=== PATIENT | female | born 1985 | race American Indian/Alaskan Native ===

== ENCOUNTER 2017-02-22 05:46 | Emergency (ER) | payer MEDICAID, SELFPAY ==
--- NOTE | 2017-02-22 09:01 | OBHP ---
Datetime: 02/22/2017 07:47 IP Adm Impression: Term, intrauterine IP Admit Plan: Discharge home Admit Comment, IP Provider: 31 yo at 38.6 weeks GA based on LMP 05/26/16 consisent with US, EDC 1 05/03/16 presents w/ complaints of decreased movement since 4 pm yesterday and vaginal discharge . Denies seeing any clear watery discharge. Upon coming to ED, pt felt movement. Denies VB or C TX. Denies headache, dizziness, nausea, vomiting, fever, chills, cough, night sweats or chest pain. P t is GBS negative. PNC: [facility], next appointment on 03/02/17. PNL:GBS neg, A+, Ab neg, HIV neg, RPR neg, rubella immune, HBsag neg, +quantiferon, GC/C neg. Pobhx: G1 Past gynhx: denies abnormal pap, Denies hx STI. pmhx: asthma, +quantiferon( no CXR available) social hx: denies EtOH, smoking cigarttes or recreational drug use. Family hx: denies family hx CAD, DMII, or CA. medication: PNV, ventolin HFA prn. Allergies: NKDA Assessment: 31 yo IUP at 38.6 weeks GA, not in active labor. Plan: heart tracing is reassuring SPE pooling is negative SVE: 0/-4 Discharge home with labor precaution and kick counts. All the questions and concerns were addressed. Pt was seen and examined with on-call OB hospitalist, Dr. Tran. Sultan Archuleta, PGY1 OB attending addendum: Patient seen and examined by me with . Agree with above assessment and plan. Patient denies va ginal bleeding contractions. Plan labor precautions next follow-up with clinic as scheduled. Extremities - PN: Normal Abdomen - PN: Normal Lungs - PN: Normal Heart - PN: Normal Neurologic - PN: Normal HEENT - PN: Normal General - PN: Normal FHR - Baseline A Provider: 140 Membranes, Provider: Intact Contraction Comments Provider: Q3min not appreciated by pt Comments, ACOG Physical Exam: SPE: whitish mucus discharge seen SVE: 1/0/-4 Bedside US: vertex position. Pool Provider: Negative IP Hx Assessment: The History has been Reviewed and is Current EGA AdmitDate IP: 38.6 Vital Signs Provider: Reviewed; Within Normal Limits IP Chief Complaint: Decreased movement; Maternal discomfort NICHD Variability Prov Fetus A: Moderate 6-25bpm NICHD Accel Fetus A IP Provider: 15X15 FHR Category Provider Fetus A: Category I NICHD Decel Fetus A IP Provider: None Dilatation, Provider: 1 Effacement, Provider: 0 Station, Provider: -4
[2017-02-22 11:37] VITALS: BP 137/82; PULSE 88; RESP 17; TEMP 98.5
== END 2017-02-22 07:15 | disposition home or self-care (01) ==
LOC: H.EROB2 05:46
DX: O36.8131 Decreased fetal movements, third trimester, fetus 1 (principal); Z3A.38 38 weeks gestation of pregnancy

== ENCOUNTER 2017-03-09 19:13 | Emergency (ER) | payer MEDICAID, SELFPAY ==
--- NOTE | 2017-03-10 00:06 | OBHP ---
Datetime: 03/09/2017 20:40 IP Adm Impression: Term, intrauterine ; No Active Labor; Intact Membranes IP Admit Plan: Discharge home Admit Comment, IP Provider: 31 y/o F at 41 weeks GA, OWEN 03/03/17 by 1st trim US, c/o pelvic pa in and uterine contractions that began a few hours ago and increasing in intensity. No VB or LOF. FM present. Pt is scheduled for IOL at [facility] tomorrow. Pt denies fever, headache, d izziness, visual disturbances, CP, SOB, N/V, urinary complaints or rash. NKDA PNC CLinic; [facility]. Meds: PNV PMHx: denied PSHx: denied SHx: No tobacco, alcohol or rec drugs. A/P: 31 y/o F with IUP at 41 weeks GA, stable and NOT in active labor. -Pt will be discharged. -Labor precautions discussed with pt. -Pt instructed to go to [facility] tomorrow for scheduled IOL as planned. Case discussed with Dr Finch, OB environmental associate. Brandon PGY-1. OB Hospitalist on-call - With PGY1, I saw and examined this patinet. Agree with note. MAHNDO Back - PN: Normal Lungs - PN: Normal Heart - PN: Normal Thyroid - PN: Normal Neurologic - PN: Normal HEENT - PN: Normal General - PN: Normal Presentation-Admit: Vertex FHR - Baseline A Provider: 145 Membranes, Provider: Intact Comments, ACOG Physical Exam: Bedside US: cephalic presentastion. Gestation - Est Wks by US: 41.0 Pool Provider: Negative IP Hx Assessment: The History has been Reviewed and is Current EGA AdmitDate IP: 41.0 IP Chief Complaint: Uterine contractions; Maternal discomfort NICHD Variability Prov Fetus A: Moderate 6-25bpm NICHD Accel Fetus A IP Provider: 15X15 FHR Category Provider Fetus A: Category I NICHD Decel Fetus A IP Provider: None Dilatation, Provider: 0 Effacement, Provider: 0 Station, Provider: -3
--- NOTE | 2017-03-10 00:08 | OBDCSUM ---
Datetime: 03/09/2017 20:29 Discharged to, Provider: Home Follow up at, Provider: CINDY Disch Instr Activity: Normal activity Disch Instr Diet: Regular Discharge Time: 03/09/2017 20:50 Follow up in weeks, Provider: vahid Disch Referrals: None
[2017-03-10 04:25] VITALS: BP 119/81; PULSE 81
== END 2017-03-09 20:50 | disposition home or self-care (01) ==
LOC: H.EROB2 19:13
DX: O47.1 False labor at or after 37 completed weeks of gestation (principal); Z3A.41 41 weeks gestation of pregnancy; O48.0 Post-term pregnancy; O26.93 Pregnancy related conditions, unspecified, third trimester; R10.2 Pelvic and perineal pain